=== PATIENT | male | born 1970 | race Caucasian/White ===

== ENCOUNTER 2024-05-23 20:55 | Emergency (ER) | payer MEDICAID ==
[~2024-05-23] VITALS: Ht 182.9 cm; Wt 90.9 kg
[2024-05-23 20:59] VITALS: BP 174/81; PULSE 88; O2SAT 96
[2024-05-23 22:02] LABS: BASOPHILS % (AUTO) 1.4 % (0-1); EOSINOPHILS # (AUTO) 0.1 X10'3 (0-0.9); EOSINOPHILS % (AUTO) 3.7 % (0-6); HEMATOCRIT 38.5 % (42.0-52.0); HEMOGLOBIN 13.4 g/dl (14.0-17.9); LYMPHOCYTES # (AUTO) 0.9 X10'3 (1.1-4.8); LYMPHOCYTES % (AUTO) 29.7 % (21-51); MEAN CORPUSCULAR HGB CONC 34.8 g/dL (33.0-36.5); MEAN CORPUSCULAR VOLUME 106.2 FL (78-98); MEAN PLATELET VOLUME 9.1 FL (7.4-10.4); MONOCYTES # (AUTO) 0.3 X10'3 (0-0.9); MONOCYTES % (AUTO) 8.6 % (2-12); NEUTROPHILS # (AUTO) 1.7 X10'3 (1.8-7.7); NEUTROPHILS % (AUTO) 56.6 % (42-75); PLATELET COUNT 54 X10'3 (140-440); RED BLOOD COUNT 3.62 X10'6 (4.70-6.10); RED CELL DISTRIBUTION WIDTH 15.5 % (11.5-14.5)
[2024-05-23 22:05] LABS: INR 1.2 INR; PROTHROMBIN TIME 12.8 SECONDS (9.0-12.0)
[2024-05-23 22:11] LABS: ANION GAP 6 (8-16); BLOOD UREA NITROGEN 13 MG/DL (7-18); BUN/CREATININE RATIO 14.6 (10.0-20.0); CALCIUM 8.3 MG/DL (8.5-10.1); CHLORIDE 107 MMOL/L (99-107); CREATININE 0.89 MG/DL (0.60-1.10); POTASSIUM 4.1 MMOL/L (3.5-5.1); PRO BRAIN NATRIURETIC PEPTIDE 83 PG/ML (0-125); SODIUM 140 MMOL/L (135-145); TOTAL CARBON DIOXIDE 26.8 MMOL/L (24-32); eCRCL 105 ML/MIN; eGFR 89 ML/MIN
[2024-05-23 22:14] LABS: D-DIMER 1.27 MG/L FEU (0-0.50); GLUCOSE 116 MG/DL (70-104)
[2024-05-23 22:29] VITALS: RESP 18
[2024-05-23 23:01] LABS: TOTAL CELLS COUNTED 100
[2024-05-23 23:06] LABS: PLATELET ESTIMATE DECREASED
[2024-05-23 23:07] LABS: LARGE PLATELETS FEW
[2024-05-23] MEDS: ondansetron/PF 4mg/2ml inj IV ONE (23:39)
[2024-05-23] MEDS: morphine 4 MG/ML inj SYRINge IV ONE (23:40)
[2024-05-23] MEDS ORDERED: iohexol 350MG/ML 100ml bottle IV ONE (23:42)
[2024-05-24] MEDS ORDERED: apixaban 5mg tablet PO SCH (00:20)
[2024-05-24] MEDS: apixaban 5mg tablet PO ONE (01:09)
[2024-05-24] MEDS ORDERED: APIX5TAB3 PO (01:31)
[2024-05-24 02:38] VITALS: TEMP 98.7
[2024-05-24] MEDS: HYDROcodone/acetaminophen 10/325mg tab PO ONE (02:38)
== END 2024-05-24 02:41 | disposition home or self-care (01) ==
LOC: ER 20:57
DX: I82.412 Acute embolism and thrombosis of left femoral vein (principal); R06.02 Shortness of breath; Z88.8 Allergy status to other drugs, medicaments and biological substances; Z79.899 Other long term (current) drug therapy
CPT/HCPCS: 36415; 71045; 71275; 80048; 83880; 84484; 85007; 85025; 85379; 85610; 93005; 93970; 96374; 96375; 99285; J2270; J2405; Q9967

== ENCOUNTER 2024-06-12 10:55 | Inpatient (IN) | payer BC, MEDICAID ==
[~2024-06-12] VITALS: Ht 182.9 cm; Wt 81.8 kg
[~2024-06-12 10:55] MED LIST: APIX5TAB3 PO
[2024-06-12 11:39] LABS: EOSINOPHILS % (AUTO) 0.2 % (0-6); HEMOGLOBIN 14.7 g/dl (14.0-17.9); LYMPHOCYTES # (AUTO) 0.3 X10'3 (1.1-4.8); NEUTROPHILS # (AUTO) 5.3 X10'3 (1.8-7.7); RED BLOOD COUNT 4.02 X10'6 (4.70-6.10)
[2024-06-12] MEDS: ondansetron/PF 4mg/2ml inj IM ONE (11:40)
[2024-06-12 11:42] LABS: BASOPHILS % (AUTO) 0.2 % (0-1); HEMATOCRIT 42.8 % (42.0-52.0); LYMPHOCYTES % (AUTO) 5.5 % (21-51); MEAN CORPUSCULAR HEMOGLOBIN 36.5 PG (27.0-31.0); MEAN CORPUSCULAR HGB CONC 34.3 g/dL (33.0-36.5); MEAN CORPUSCULAR VOLUME 106.4 FL (78-98); MEAN PLATELET VOLUME 10.4 FL (7.4-10.4); MONOCYTES # (AUTO) 0.3 X10'3 (0-0.9); MONOCYTES % (AUTO) 5.3 % (2-12); NEUTROPHILS % (AUTO) 88.8 % (42-75); RED CELL DISTRIBUTION WIDTH 14.6 % (11.5-14.5)
[2024-06-12 11:45] LABS: PLATELET COUNT 30 X10'3 (140-440)
[2024-06-12 11:49] LABS: ALANINE AMINOTRANSFERASE 51 U/L (12-78); ALBUMIN 3.3 G/DL (3.4-5.0); ALKALINE PHOSPHATASE 103 IU/L (46-116); ANION GAP 11 (8-16); ASPARTATE AMINO TRANSFERASE 31 U/L (10-37); BILIRUBIN,TOTAL 4.8 MG/DL (0.1-1.0); BLOOD UREA NITROGEN 13 MG/DL (7-18); BUN/CREATININE RATIO 14.8 (10.0-20.0); CALCIUM 8.5 MG/DL (8.5-10.1); CHLORIDE 107 MMOL/L (99-107); CREATININE 0.88 MG/DL (0.60-1.10); POTASSIUM 3.8 MMOL/L (3.5-5.1); SODIUM 138 MMOL/L (135-145); TOTAL CARBON DIOXIDE 20.1 MMOL/L (24-32); eCRCL 107 ML/MIN; eGFR > 90 ML/MIN
[2024-06-12 11:55] LABS: PRO BRAIN NATRIURETIC PEPTIDE 785 PG/ML (0-125)
[2024-06-12 11:57] LABS: ALBUMIN/GLOBULIN RATIO 0.8 (1.1-1.5); GLUCOSE 153 MG/DL (70-104); TOTAL PROTEIN 7.3 G/DL (6.4-8.2)
[2024-06-12 12:20] LABS: PLATELET ESTIMATE DECREASED; TOTAL CELLS COUNTED 100
[2024-06-12 12:25] LABS: CLARITY,URINE CLEAR (Clear)
[2024-06-12 12:30] LABS: COLOR,URINE ORANGE (Yellow); UA COLLECTION TYPE NON-SPECIFIED
[2024-06-12 12:33] LABS: BACTERIA,URINE FEW /HPF (Neg); MUCUS STRANDS NONE SEEN /LPF (Neg); SQUAMOUS EPITHELIAL CELL,UR NONE SEEN /LPF (FEW)
[2024-06-12] MEDS: normal saline 1000ml 1,000 ML IV ONE ×2 (12:36→14:40)
[2024-06-12] MEDS: morphine 4 MG/ML inj SYRINge IV ONE ×2 (12:41→14:41)
[2024-06-12] MEDS: ondansetron/PF 4mg/2ml inj IV ONE ×2 (12:55→14:41)
[2024-06-12] MEDS ORDERED: iohexol 300mg/ml 100ml inj. ONE (14:27)
[2024-06-12] MEDS: piperacillin/tazo 3.375gm/50ml 50 ML IV ONE (14:41)
[2024-06-12] MEDS ORDERED: potassium Cl 20 mEq SR tablet PO PRN ×2 (18:50)
[2024-06-12] MEDS ORDERED: acetaminophen 325mg tablet PO PRN (18:50)
[2024-06-12] MEDS ORDERED: haloperidol 5mg tablet PO PRN (18:50)
[2024-06-12] MEDS ORDERED: magnesium hydroxide 30ml (MOM) UD suspension PO PRN (18:50)
[2024-06-12] MEDS ORDERED: potassium Cl 40MEQ/1/2NS 520ml 520 ML IV PRN (18:50)
[2024-06-12] MEDS ORDERED: magnesium sulf-water 4G/100mL 100 ML IV PRN (18:50)
[2024-06-12] MEDS ORDERED: cloNIDine 0.1 mg tablet PO PRN (18:50)
[2024-06-12] MEDS ORDERED: magnesium sulf-water 2g/50mL 50 ML IV PRN (18:50)
[2024-06-12] MEDS ORDERED: magnesium Cl slow-release 64mg tablet PO PRN (18:50)
[2024-06-12] MEDS ORDERED: dextrose 50%-water 50ml dispensing syringe IV PRN (18:50)
[2024-06-12] MEDS ORDERED: mag hydrox/Alum hydrox/simeth 30ml oral suspension PO PRN (18:50)
[2024-06-12] MEDS ORDERED: ondansetron/PF 4mg/2ml inj IV PRN (18:50)
[2024-06-12] MEDS ORDERED: haloperidol lactate 5mg/ml inj IM PRN (18:50)
[2024-06-12] MEDS: LORazepam 2 mg/ml vial IV ONE (19:00)
[2024-06-12] MEDS: normal saline 1000ml 1,000 ML IV SCH (19:38)
[2024-06-12 19:50] LABS: HEMOGLOBIN A1C 4.2 % (4.5-6.2)
[2024-06-12 20:00] VITALS: RESP 18; O2SAT 96
[2024-06-12] MEDS: K and/or MAG REPLACEMENT MC SCH (20:00)
[2024-06-12] MEDS: thiamine 100mg/ml 2ml inj. IV SCH (20:44)
[2024-06-12] MEDS: docusate sod 100mg capsule PO SCH (20:44)
[2024-06-12] MEDS ORDERED: ASPI-1264 PO (21:57)
[2024-06-12 22:00] VITALS: BP 114/60; PULSE 95; RESP 18; TEMP 98.3; O2SAT 96
[2024-06-12] MEDS: LORazepam 2 mg/ml vial IV PRN (22:05)
[2024-06-13] MEDS: acetaminophen 325mg tablet PO PRN (00:01)
[2024-06-13] MEDS ORDERED: ASPI-10 PO (02:51)
[2024-06-13 06:00] VITALS: BP 92/55; PULSE 93; RESP 22; TEMP 97.9; O2SAT 98
[2024-06-13 07:43] LABS: EOSINOPHILS # (AUTO) 0.1 X10'3 (0-0.9); HEMOGLOBIN 11.4 g/dl (14.0-17.9); MONOCYTES # (AUTO) 0.2 X10'3 (0-0.9); WHITE BLOOD COUNT 2.9 X10'3 (4.5-11.0)
[2024-06-13 07:45] LABS: BASOPHILS % (AUTO) 0.5 % (0-1); HEMATOCRIT 32.9 % (42.0-52.0); LYMPHOCYTES # (AUTO) 0.6 X10'3 (1.1-4.8); MEAN CORPUSCULAR HGB CONC 34.8 g/dL (33.0-36.5); MEAN CORPUSCULAR VOLUME 106.2 FL (78-98); MONOCYTES % (AUTO) 7.4 % (2-12); NEUTROPHILS % (AUTO) 69.1 % (42-75); RED CELL DISTRIBUTION WIDTH 15.2 % (11.5-14.5)
[2024-06-13 07:51] LABS: PLATELET COUNT 23 X10'3 (140-440)
[2024-06-13 07:57] LABS: ALANINE AMINOTRANSFERASE 35 U/L (12-78); ALBUMIN 2.3 G/DL (3.4-5.0); ALBUMIN/GLOBULIN RATIO 0.7 (1.1-1.5); ALKALINE PHOSPHATASE 78 IU/L (46-116); ANION GAP 7 (8-16); ASPARTATE AMINO TRANSFERASE 22 U/L (10-37); BILIRUBIN,TOTAL 3.2 MG/DL (0.1-1.0); BLOOD UREA NITROGEN 23 MG/DL (7-18); CALCIUM 7.7 MG/DL (8.5-10.1); CHLORIDE 108 MMOL/L (99-107); CHOL/HDL RATIO 2.9 (0.00-4.99); CHOLESTEROL 50 MG/DL (0-200); CREATININE 0.96 MG/DL (0.60-1.10); GLUCOSE 139 MG/DL (70-104); HDL CHOLESTEROL 17 MG/DL (35-60); LDL CHOLESTEROL 20 MG/DL (50-100); MAGNESIUM 1.5 MG/DL (1.5-2.4); POTASSIUM 3.8 MMOL/L (3.5-5.1); SODIUM 135 MMOL/L (135-145); TOTAL CARBON DIOXIDE 20.4 MMOL/L (24-32); TOTAL PROTEIN 5.5 G/DL (6.4-8.2); TRIGLYCERIDES 46 MG/DL (20-135); eCRCL 98 ML/MIN; eGFR 82 ML/MIN
[2024-06-13 08:00] VITALS: RESP 16; O2SAT 99
[2024-06-13 10:38] VITALS: BP 96/55; PULSE 83; RESP 20; TEMP 97.1; O2SAT 97
[2024-06-13] MEDS: folic acid 1mg/0.2ml inj IV SCH (11:11)
[2024-06-13] MEDS ORDERED: LIDOcaine 5% patch TP SCH (13:40)
[2024-06-13] MEDS: LIDOcaine 5% patch TP SCH (14:13)
[2024-06-13] MEDS: HYDROcodone/acetaminophen 10/325mg tab PO PRN (16:50)
[2024-06-13 18:00] VITALS: BP 136/61; PULSE 87; RESP 16; TEMP 98; O2SAT 98
[2024-06-13 20:00] VITALS: RESP 16; O2SAT 98
[2024-06-13 22:00] VITALS: BP 92/48; PULSE 94; RESP 17; TEMP 98; O2SAT 99
[2024-06-14 06:00] VITALS: BP 120/59; PULSE 83; RESP 22; TEMP 98; O2SAT 99
[2024-06-14 06:32] LABS: EOSINOPHILS # (AUTO) 0.1 X10'3 (0-0.9); LYMPHOCYTES # (AUTO) 0.5 X10'3 (1.1-4.8); MONOCYTES # (AUTO) 0.2 X10'3 (0-0.9); NEUTROPHILS # (AUTO) 1.3 X10'3 (1.8-7.7); NEUTROPHILS % (AUTO) 63.1 % (42-75); WHITE BLOOD COUNT 2.1 X10'3 (4.5-11.0)
[2024-06-14 06:34] LABS: BASOPHILS % (AUTO) 0.9 % (0-1); EOSINOPHILS % (AUTO) 3.8 % (0-6); HEMATOCRIT 32.5 % (42.0-52.0); HEMOGLOBIN 11.5 g/dl (14.0-17.9); LYMPHOCYTES % (AUTO) 23.9 % (21-51); MEAN CORPUSCULAR HEMOGLOBIN 37.5 PG (27.0-31.0); MEAN CORPUSCULAR HGB CONC 35.3 g/dL (33.0-36.5); MEAN CORPUSCULAR VOLUME 106.3 FL (78-98); MEAN PLATELET VOLUME 10.8 FL (7.4-10.4); MONOCYTES % (AUTO) 8.3 % (2-12); RED BLOOD COUNT 3.06 X10'6 (4.70-6.10); RED CELL DISTRIBUTION WIDTH 15.2 % (11.5-14.5)
[2024-06-14 06:39] LABS: PLATELET COUNT 25 X10'3 (140-440)
[2024-06-14 06:43] LABS: ALANINE AMINOTRANSFERASE 33 U/L (12-78); ALBUMIN 2.3 G/DL (3.4-5.0); ALBUMIN/GLOBULIN RATIO 0.7 (1.1-1.5); ALKALINE PHOSPHATASE 80 IU/L (46-116); ANION GAP 7 (8-16); ASPARTATE AMINO TRANSFERASE 25 U/L (10-37); BILIRUBIN,TOTAL 1.4 MG/DL (0.1-1.0); BLOOD UREA NITROGEN 20 MG/DL (7-18); BUN/CREATININE RATIO 22.7 (10.0-20.0); CALCIUM 8.1 MG/DL (8.5-10.1); CHLORIDE 109 MMOL/L (99-107); CREATININE 0.88 MG/DL (0.60-1.10); GLUCOSE 107 MG/DL (70-104); MAGNESIUM 1.9 MG/DL (1.5-2.4); POTASSIUM 4.3 MMOL/L (3.5-5.1); SODIUM 137 MMOL/L (135-145); TOTAL CARBON DIOXIDE 20.8 MMOL/L (24-32); TOTAL PROTEIN 5.7 G/DL (6.4-8.2); eCRCL 107 ML/MIN; eGFR > 90 ML/MIN
[2024-06-14 07:22] LABS: PLATELET ESTIMATE DECREASED; TOTAL CELLS COUNTED 100
[2024-06-14 09:57] LABS: APTT 28 SECONDS (22-32); D-DIMER 1.14 MG/L FEU (0-0.50); FIBRINOGEN 336 MG/DL (177-424); INR 1.1 INR; PROTHROMBIN TIME 11.8 SECONDS (9.0-12.0)
[2024-06-14 10:00] VITALS: BP 146/75; PULSE 83; RESP 16; TEMP 98.2; O2SAT 100
[2024-06-14 10:07] LABS: PLATELET COUNT 28 X10'3 (140-440)
[2024-06-14 11:06] VITALS: RESP 16
[2024-06-14] MEDS ORDERED: thiamine tablet PO (12:44)
[2024-06-14] MEDS ORDERED: FOLI1TAB27 PO (12:44)
[2024-06-14] MEDS ORDERED: LORazepam 2 mg/ml vial IV PRN (18:50)
[2024-06-14] MEDS ORDERED: LORazepam 1 MG tablet PO PRN (18:50)
[2024-06-16 07:24] LABS: HBSAG SCREEN Negative (Negative); HEP A AB, IGM Negative (Negative); HEP B CORE AB, IGM Negative (Negative)
[2024-06-16] MEDS ORDERED: LORazepam 1 MG tablet PO PRN (18:50)
[2024-06-16] MEDS ORDERED: LORazepam 2 mg/ml vial IV PRN (18:50)
[2024-06-17] MEDS ORDERED: thiamine 100mg tablet PO SCH (08:00)
[2024-06-17] MEDS ORDERED: folic acid 1mg tablet PO SCH (08:00)
== END 2024-06-14 13:22 | disposition home or self-care (01) | DRG 872 ==
LOC: ER 10:56 → ED HOLD 18:59 → ORTHO 4S 21:52
PROVIDERS: ADMIT Internal Medicine; ATTEND Internal Medicine
PROC: BW211ZZ Computerized Tomography (CT Scan) of Abdomen and Pelvis using Low Osmolar Contrast (ICD-10-PCS; principal; 2024-06-12)
DX: A41.9 Sepsis, unspecified organism (principal); F10.139 Alcohol abuse with withdrawal, unspecified; F17.210 Nicotine dependence, cigarettes, uncomplicated; Y90.9 Presence of alcohol in blood, level not specified; D69.59 Other secondary thrombocytopenia; M32.9 Systemic lupus erythematosus, unspecified; K70.30 Alcoholic cirrhosis of liver without ascites; M54.50 Low back pain, unspecified; I87.8 Other specified disorders of veins; Z86.711 Personal history of pulmonary embolism; Z86.718 Personal history of other venous thrombosis and embolism
CPT/HCPCS: 36415; 71045; 72148; 74177; 80053; 80061; 80074; 81001; 83036; 83605; 83735; 83880; 84484; 85007; 85025; 85379; 85384; 85610; 85730; 87081; 87088; 87811; 93005; 93971; 99285; G0378; J2060; J2270; J2405; J2543; J3411; J3490; J7030; Q9967

== ENCOUNTER 2024-06-23 17:13 | Emergency (ER) | payer BC, MEDICAID ==
[~2024-06-23] VITALS: Ht 182.9 cm; Wt 84.1 kg
[~2024-06-23 17:13] MED LIST changes: -APIX5TAB3 PO; +FOLI1TAB27 PO; +thiamine tablet PO
[2024-06-23] MEDS: LORazepam 2 mg/ml vial IM ONE (18:57)
[2024-06-23 19:15] LABS: URINE AMPHETAMINE SCREEN NEGATIVE (Neg); URINE BARBITUATE SCREEN NEGATIVE (Neg); URINE BENZODIAZEPINES SCREEN NEGATIVE (Neg); URINE CANNABINOID SCREEN POSITIVE (Neg); URINE COCAINE SCREEN NEGATIVE (Neg); URINE METHADONE SCREEN NEGATIVE (Neg); URINE OPIATE SCREEN NEGATIVE (Neg); URINE PHENCYCLIDINE SCREEN NEGATIVE (Neg)
[2024-06-23 19:20] LABS: EOSINOPHILS # (AUTO) 0.1 X10'3 (0-0.9); HEMOGLOBIN 12.4 g/dl (14.0-17.9); LYMPHOCYTES # (AUTO) 0.6 X10'3 (1.1-4.8); NEUTROPHILS # (AUTO) 2.6 X10'3 (1.8-7.7); WHITE BLOOD COUNT 3.5 X10'3 (4.5-11.0)
[2024-06-23 19:22] LABS: BASOPHILS % (AUTO) 0.9 % (0-1); EOSINOPHILS % (AUTO) 1.8 % (0-6); HEMATOCRIT 35.8 % (42.0-52.0); LYMPHOCYTES % (AUTO) 17.6 % (21-51); MEAN CORPUSCULAR HGB CONC 34.7 g/dL (33.0-36.5); MEAN CORPUSCULAR VOLUME 106.7 FL (78-98); MEAN PLATELET VOLUME 9.8 FL (7.4-10.4); MONOCYTES # (AUTO) 0.1 X10'3 (0-0.9); MONOCYTES % (AUTO) 4.1 % (2-12); NEUTROPHILS % (AUTO) 75.6 % (42-75); RED BLOOD COUNT 3.35 X10'6 (4.70-6.10); RED CELL DISTRIBUTION WIDTH 14.2 % (11.5-14.5)
[2024-06-23 19:25] LABS: ALBUMIN 2.8 G/DL (3.4-5.0); ANION GAP 7 (8-16); BLOOD UREA NITROGEN 14 MG/DL (7-18); BUN/CREATININE RATIO 14.7 (10.0-20.0); CALCIUM 8.3 MG/DL (8.5-10.1); CHLORIDE 108 MMOL/L (99-107); CREATININE 0.95 MG/DL (0.60-1.10); ETHANOL < 10 MG/DL (<10); GLUCOSE 138 MG/DL (70-104); POTASSIUM 4.3 MMOL/L (3.5-5.1); SODIUM 140 MMOL/L (135-145); TOTAL CARBON DIOXIDE 24.8 MMOL/L (24-32); eCRCL 99 ML/MIN; eGFR 83 ML/MIN
[2024-06-23 19:30] LABS: PLATELET COUNT 38 X10'3 (140-440)
[2024-06-23] MEDS ORDERED: FOLI1TAB27 PO (19:30)
[2024-06-23] MEDS ORDERED: THIA100T70 PO (19:32)
[2024-06-23] MEDS ORDERED: olanzapine 10mg tablet PO ONE (20:50)
[2024-06-23] MEDS: OLANZapine 5mg rapidly disint. tablet PO ONE (20:58)
[2024-06-23 20:59] LABS: BILIRUBIN,URINE MODERATE (Neg); CLARITY,URINE CLOUDY (Clear); COLOR,URINE AMBER (Yellow); GLUCOSE, URINE NEGATIVE (Neg); KETONES,URINE NEGATIVE (Neg); LEUKOCYTE ESTERASE ,URINE NEGATIVE (Neg); OCCULT BLOOD,URINE MODERATE (Neg); PROTEIN,URINE NEGATIVE (Neg)
[2024-06-23 21:05] LABS: NITRITES, URINE NEGATIVE (Neg); UA COLLECTION TYPE CLN CATCH MIDSTREAM
[2024-06-23 21:09] LABS: MUCUS STRANDS FEW /LPF (Neg); SQUAMOUS EPITHELIAL CELL,UR MODERATE /LPF (FEW)
[2024-06-23 21:10] LABS: ALANINE AMINOTRANSFERASE 39 U/L (12-78); ALBUMIN/GLOBULIN RATIO 0.7 (1.1-1.5); ALKALINE PHOSPHATASE 83 IU/L (46-116); ASPARTATE AMINO TRANSFERASE 35 U/L (10-37); THYROID STIMULATING HORMONE 0.49 ulU/ml (0.34-4.50); TOTAL PROTEIN 6.8 G/DL (6.4-8.2)
[2024-06-23 21:10] LABS: BACTERIA,URINE FEW /HPF (Neg); RBC,URINE 20-50 /HPF (0-2)
[2024-06-23 21:11] LABS: CAL OXALATE CRYSTALS FEW /HPF (NEGATIVE)
[2024-06-24] MEDS: folic acid 1mg tablet PO SCH (08:55)
[2024-06-24] MEDS: thiamine 100mg tablet PO SCH (08:55)
[2024-06-24] MEDS: LORazepam 1 MG tablet PO ONE (11:28)
[2024-06-24 18:31] VITALS: BP 122/62; PULSE 81; TEMP 97.8; O2SAT 99
[2024-06-24 18:34] VITALS: RESP 16
[2024-06-24] MEDS: hydrOXYzine 25 MG tablet PO ONE (18:49)
== END 2024-06-24 19:21 ==
LOC: ER 17:13
DX: R45.851 Suicidal ideations (principal); F41.9 Anxiety disorder, unspecified; F10.90 Alcohol use, unspecified, uncomplicated; Z20.822 Contact with and (suspected) exposure to COVID-19; Z88.8 Allergy status to other drugs, medicaments and biological substances; Z79.899 Other long term (current) drug therapy; Z86.718 Personal history of other venous thrombosis and embolism; Z86.711 Personal history of pulmonary embolism
CPT/HCPCS: 36415; 80053; 80305; 80320; 81001; 84443; 85025; 87811; 96372; 99285; J2060; Q0177

== ENCOUNTER 2024-07-03 00:46 | Emergency (ER) | payer BC, MEDICAID ==
[~2024-07-03] VITALS: Ht 177.8 cm; Wt 84.1 kg
[~2024-07-03 00:46] MED LIST changes: +ASPI-1264 PO; +THIA100T70 PO; -thiamine tablet PO
[2024-07-03 01:52] LABS: BILIRUBIN,URINE NEGATIVE (Neg); CLARITY,URINE CLEAR (Clear); GLUCOSE, URINE NEGATIVE (Neg); KETONES,URINE NEGATIVE (Neg); LEUKOCYTE ESTERASE ,URINE NEGATIVE (Neg); NITRITES, URINE NEGATIVE (Neg); OCCULT BLOOD,URINE TRACE-INTACT (Neg); PROTEIN,URINE NEGATIVE (Neg); UROBILINOGEN,URINE >=8.0 E.U/dL (0.2-1.0)
[2024-07-03 02:05] LABS: URINE AMPHETAMINE SCREEN NEGATIVE (Neg); URINE BARBITUATE SCREEN NEGATIVE (Neg); URINE BENZODIAZEPINES SCREEN NEGATIVE (Neg); URINE CANNABINOID SCREEN POSITIVE (Neg); URINE COCAINE SCREEN NEGATIVE (Neg); URINE METHADONE SCREEN NEGATIVE (Neg); URINE OPIATE SCREEN NEGATIVE (Neg); URINE PHENCYCLIDINE SCREEN NEGATIVE (Neg)
[2024-07-03 02:11] LABS: COLOR,URINE DARK YELLOW (Yellow); UA COLLECTION TYPE CLN CATCH MIDSTREAM
[2024-07-03 02:12] LABS: BACTERIA,URINE NONE SEEN /HPF (Neg); MUCUS STRANDS NONE SEEN /LPF (Neg); SQUAMOUS EPITHELIAL CELL,UR NONE SEEN /LPF (FEW); WBC,URINE 0-4 /HPF (0-4)
[2024-07-03 02:14] LABS: BASOPHILS % (AUTO) 0.9 % (0-1); EOSINOPHILS # (AUTO) 0.1 X10'3 (0-0.9); EOSINOPHILS % (AUTO) 2.9 % (0-6); HEMATOCRIT 40.1 % (42.0-52.0); HEMOGLOBIN 13.8 g/dl (14.0-17.9); LYMPHOCYTES # (AUTO) 0.8 X10'3 (1.1-4.8); MEAN CORPUSCULAR HEMOGLOBIN 36.4 PG (27.0-31.0); MEAN CORPUSCULAR HGB CONC 34.5 g/dL (33.0-36.5); MEAN CORPUSCULAR VOLUME 105.3 FL (78-98); MEAN PLATELET VOLUME 9.7 FL (7.4-10.4); MONOCYTES # (AUTO) 0.5 X10'3 (0-0.9); MONOCYTES % (AUTO) 12.5 % (2-12); NEUTROPHILS # (AUTO) 2.3 X10'3 (1.8-7.7); NEUTROPHILS % (AUTO) 62.7 % (42-75); RED CELL DISTRIBUTION WIDTH 14.2 % (11.5-14.5); WHITE BLOOD COUNT 3.6 X10'3 (4.5-11.0)
[2024-07-03 02:16] LABS: PLATELET COUNT 43 X10'3 (140-440)
[2024-07-03 02:27] LABS: ALANINE AMINOTRANSFERASE 55 U/L (12-78); ALBUMIN 3.3 G/DL (3.4-5.0); ALBUMIN/GLOBULIN RATIO 0.8 (1.1-1.5); ALKALINE PHOSPHATASE 99 IU/L (46-116); ANION GAP 5 (8-16); ASPARTATE AMINO TRANSFERASE 43 U/L (10-37); BILIRUBIN,TOTAL 1.6 MG/DL (0.1-1.0); BLOOD UREA NITROGEN 18 MG/DL (7-18); BUN/CREATININE RATIO 18.4 (10.0-20.0); CALCIUM 8.4 MG/DL (8.5-10.1); CHLORIDE 105 MMOL/L (99-107); CREATININE 0.98 MG/DL (0.60-1.10); LIPASE 25 U/L (16-77); POTASSIUM 3.8 MMOL/L (3.5-5.1); SODIUM 136 MMOL/L (135-145); TOTAL PROTEIN 7.6 G/DL (6.4-8.2); eCRCL 90 ML/MIN; eGFR 80 ML/MIN
[2024-07-03 02:30] LABS: GLUCOSE 97 MG/DL (70-104)
[2024-07-03 04:16] LABS: ETHANOL < 10 MG/DL (<10); MAGNESIUM 2.1 MG/DL (1.5-2.4)
[2024-07-03 04:49] VITALS: PULSE 83
[2024-07-03] MEDS: HYDROcodone/acetaminophen 10/325mg tab PO ONE (04:57)
[2024-07-03 05:27] VITALS: BP 127/57; RESP 15; TEMP 98.5; O2SAT 98
== END 2024-07-03 05:54 | disposition home or self-care (01) ==
LOC: ER 00:47
DX: K70.30 Alcoholic cirrhosis of liver without ascites (principal); D61.811 Other drug-induced pancytopenia; R10.84 Generalized abdominal pain; F10.90 Alcohol use, unspecified, uncomplicated; Z88.8 Allergy status to other drugs, medicaments and biological substances; Z79.82 Long term (current) use of aspirin; Z79.899 Other long term (current) drug therapy; Z86.718 Personal history of other venous thrombosis and embolism; Z86.711 Personal history of pulmonary embolism
CPT/HCPCS: 36415; 74176; 80053; 80305; 80320; 81001; 83690; 83735; 85025; 99285; J7030

== ENCOUNTER 2025-05-03 09:39 | Inpatient (IN) | payer BC, MEDICAID ==
[~2025-05-03] VITALS: Ht 182.9 cm; Wt 109.0 kg
--- NOTE | 2025-05-03 10:29 | RADIOLOGY REPORT ---
DI CHEST,SINGLE VIEW, HISTORY: CP COMPARISON: DI CHEST,SINGLE VIEW on DOS: 06/12/24, DI CHEST,SINGLE VIEW on DOS: 05/23/24 DI CHEST,SINGLE VIEW on DOS: 06/12/24, DI CHEST,SINGLE VIEW on DOS: 05/23/24 TECHNICAL DATA: 1 view of the chest was obtained. FINDINGS: Lines and tubes: None Cardiomediastinal silhouette: normal Pulmonary vasculature: normal Lung expansion: normal Lung airspace: Perihilar airspace opacities. Lung interstitium: prominent Pleura: normal Pneumothorax: no Bones: Unremarkable Other: no IMPRESSION: Perihilar airspace opacities and interstitial prominence could be edema.
--- NOTE | 2025-05-03 10:44 | RADIOLOGY REPORT ---
EXAM: CT CT HEAD HISTORY: lethargy sleepiness COMPARISON: None TECHNIQUE: Axial images of the head were obtained and reformatted in coronal and sagittal planes. All CT scans at this medical facility are performed using dose modulation techniques as appropriate t o a performed exam including the following: Automated exposure control was utilized; adjustment of th e MA and/or KV according to patient size; and use of iterative reconstruction technique. CT Dose: CTDI volume is 50 mGy. Dose-length product is 959 mGy*cm FINDINGS: There is no evidence of acute intracranial hemorrhage, mass, mass effect midline shift. There is no h ydrocephalus or extra-axial fluid collection. Riddle-white matter differentiation is maintained. There is mucosal thickening in the left maxillary sinus. The remaining visualized paranasal sinuses a nd mastoid air cells are clear. The calvarium is intact. IMPRESSION: 1. No acute intracranial process. HS:Y
[2025-05-03] MEDS: normal saline 1000ml 1,000 ML IV SCH ×3 (10:45→20:55)
--- NOTE | 2025-05-03 10:45 | Physician Documentation ---
History of Present Illness ~ Chief Complaint: Hypotension Stated Complaint: LETHARGIC Time Seen by MD: 10:12 OK to notify your PCP?: Yes Primary Medical Doctor: NONE Source: RN/MD, EMS, RN notes reviewed, old records Exam Limitations: clinical condition (altered mental status) HPI 54 year old male brought to the ED via EMS from [facility] with concerns of altered mental status/ "lethargy" beginning today. He was reportedly found to be very somnolent and altered by staff there this morning. EMS was called and , patient's oxygen saturation was reportedly in the low 80s. Glucose was 199. Patient reportedly has a history of hepatic encephalopathy, cirrhosis, as well as narcotic use. Unable to obtain complete history of present illness due to patient's altered mental status. Medication Reconciliation Allergies: Coded Allergies: prednisone (Verified Allergy, Unknown, 06/23/24) Discontinued Medications Aspirin* (Aspirin*), 1 TAB PO DAILY Discontinued Reason: patient no longer taking Folic Acid* (Folic Acid*), 1 TAB PO DAILY, (Reported) Discontinued Reason: patient no longer taking Thiamine Mononitrate (Vitamin B-1), 100 MG PO DAILY, (Reported) Discontinued Reason: patient no longer taking Past Medical History Past Medical History: Pulmonary Embolism, *GI/HEPATOBILIARY*, Cirrohsis, Deep Vein Thrombosis Patient History: Patient reports no known family medical history. Alcohol Use: Alcoholic Drug Use: none Unable to obtain complete PMH: altered mental status Review of Systems Unable to obtain complete ROS: altered mental status Physical Exam Vital Signs: RN Vital Signs have been reviewed: Yes, Temperature: 97.6, Heart Rate: 62, Respiratory Rate: 10, BP: 87/48, Pulse Oximetry: 98, Weight: 109.090 Oxygen Flow Rate: 2.0 Pulse Oximetry Reflects: hypoxemia Physical Exam General: The patient is well developed, well nourished, mild distress. Chronically ill appearing. Skin: [place], warm and dry with no rashes. HEENT: Head was normocephalic and atraumatic. Eyes - Pupils constricted at 1mm bilaterally, reactive. Extraocular movements were intact. Conjunctivae were slightly icteric. Neck: Supple and nontender. There was no jugular venous distention, lymphadenopathy, thyromegaly or masses. Chest: Clear to auscultation bilaterally without wheezes, rales or rhonchi. No accessory muscle use. No dullness to percussion. Heart: Rate regular and rhythmic. S1, S2. No murmurs. Palpation of the chest wall was normal. No rubs or thrills. Abdomen: Distended abdomen. Soft, nontender. Positive bowel sounds. No guarding or rebound. Extremities: Pitting edema of bilateral lower extremities with chronic venous stasis changes. No cyanosis or clubbing. Pulses were equal and symmetric. Neurologic: Obtunded, moans to pain, opens eyes. Not answering questions. Moves all extremities. Psychologic: Unable to assess. Progress Progress Note 1254: Case discussed with Dr. Huang, oncology specialist, who believes patient is appropriate for PCU. 1257: Hospitalist paged. 1310: Case discussed with Dr. Rondon, hospitalist, who will evaluate patient for admission but is requesting formal consultation by oncology specialist. Results/Orders Reviewed/noted all lab results: Yes Results/Orders Orders - DELFINO RAY MD Chest,Single View (05/03/25 09:51) Monitor (05/03/25 09:51) Saline Lock (05/03/25 09:51) Oxygen (05/03/25 09:51) Electrocardiogram (05/03/25 09:51) Hs Troponin I W Calculations (05/03/25 12:51) Ct Head (05/03/25 10:32) Culture Blood (05/03/25 10:37) Abg (Arterial Blood Gas) (05/03/25 12:44) Page Hospitalist (05/03/25 12:57) Fill Out Med Reconciliation (05/03/25 12:57) Nasal Gastric Tube (05/03/25 ) Completed Orders - DELFINO RAY MD Chest,Single View (05/03/25 09:51) Cbc/Diff (05/03/25 09:51) BMP (05/03/25 09:51) PBNP (05/03/25 09:51) Electrocardiogram (05/03/25 09:51) Hs Troponin I W Calculations (05/03/25 09:51) Hs Troponin I W Calculations (05/03/25 11:51) Ammonia (05/03/25 10:10) Ct Head (05/03/25 10:32) Liver Panel (05/03/25 10:36) MG (05/03/25 10:36) Procalcitonin (05/03/25 10:37) Lacticsepsis (05/03/25 10:37) Normal Saline 1000ml (Sodium Chloride 10 (05/03/25 10:45) Naloxone 2mg/2ml Inj (Narcan 2mg/2ml Inj (05/03/25 10:56) Glucagon, Human Recombinant (Glucagen In (05/03/25 11:50) Man Diff (05/03/25 10:54) Lactulose Oral Solution (Cephulac Oral S (05/03/25 13:00) Vital Signs 05/03/25 05/03/25 05/03/25 05/03/25 09:49 10:40 11:15 11:18 Temp 97.6 97.6 Pulse 65 62 63 Resp 10 10 9 B/P (MAP) 88/47 87/48 (61) 87/47 (60) Pulse Ox 98 98 99 O2 Flow Rate 4.0 2.0 05/03/25 11:46 Pulse 64 Resp 9 B/P (MAP) 98/53 (68) Pulse Ox 99 O2 Flow Rate 3.0 Laboratory Tests Test 05/03/25 10:54 05/03/25 12:39 05/03/25 13:17 White Blood Count 1.7 L Red Blood Count 3.11 L Hemoglobin 11.3 L Hematocrit 31.9 L Mean Corpuscular Volume 102.6 H Mean Corpuscular Hemoglobin 36.2 H Mean Corpuscular Hemoglobin Concent 35.3 Red Cell Distribution Width 14.3 Platelet Count 21 *L Mean Platelet Volume 9.7 Neutrophils (%) (Auto) 62.6 Lymphocytes (%) (Auto) 25.4 Monocytes (%) (Auto) 8.0 Eosinophils (%) (Auto) 2.8 Basophils (%) (Auto) 1.2 H Neutrophils # (Auto) 1.1 L Lymphocytes # (Auto) 0.4 L Monocytes # (Auto) 0.1 Eosinophils # (Auto) 0.0 Basophils # (Auto) 0.0 CBC Comment Differential Total Cells Counted 100 Neutrophils % (Manual) 61.0 Lymphocytes % (Manual) 29.0 Monocytes % (Manual) 9.0 Eosinophils % (Manual) 1.0 Platelet Estimate Decreased Red Blood Cell Morphology Normal Basophilic Stippling Sodium Level 141 Potassium Level 4.1 Chloride Level 111 H Carbon Dioxide Level 24.0 Anion Gap 6 L Blood Urea Nitrogen 18 Creatinine 0.81 Estimated GFR/1.73 m2 > 90 BUN/Creatinine Ratio 22.2 H Glucose Level 159 H Lactic Acid Level 1.2 Calcium Level 7.8 L Magnesium Level 1.7 Total Bilirubin 1.5 H Direct Bilirubin 0.5 H Aspartate Amino Transf (AST/SGOT) 49 H Alanine Aminotransferase (ALT/SGPT) 49 Alkaline Phosphatase 118 H Ammonia 140 *H Troponin I High Sensitivity 8 9 Pro-B-Type Natriuretic Peptide 67 Total Protein 6.2 L Albumin 2.4 L Globulin 3.8 Albumin/Globulin Ratio 0.6 L Procalcitonin 0.06 Chemistry Comments Troponin I High Sens Percent Delta 12 Troponin I Hi Sens Absolute Change 1 Blood Gas Specimen Type Arterial Blood Gas Puncture Site Lr O2 Saturation 90.4 L Arterial Blood pH (Temp corrected) 7.372 Arterial Blood pCO2 (Temp correct) 35.3 Arterial Blood pO2 (Temp corrected) 62.9 L Arterial Blood PO2/FiO2 Ratio 3.00 Arterial Blood HCO3 20.0 L Arterial Blood Base Excess -4.5 L Arterial Blood Oxyhemoglobin 89.3 L Arterial Blood Carboxyhemoglobin 0.9 Arterial Blood Methemoglobin 0.3 Arterial Blood Deoxyhemoglobin 9.5 H Gunnar Test Positive Blood Gas Hemoglobin 12.7 L Blood Gas Temperature 37.0 FiO2 21.0 Microbiology Date/Time Source Procedure Growth Status 05/03/25 12:39 Blood Hand Left Blood Culture - Preliminary NEGATIVE (LESS THAN 24 HOURS) Resulted Re-Evaluation Re-Evaluation : Re-Evaluation: Improved Progress Patient was seen and examined. Patient is given reassurance. Patient however somewhat obtunded living a bit ill. Patient has a slightly distended abdomen with a report of having ascites removed over a month ago. Patient's WBC shows anemia with a hemoglobin hematocrit of 11 and 39 MCV 102 low platelets he was 21 and WBC of 1.7. Chemistry shows pneumonia of 140. Otherwise chemistries are reassuring and within normal limits. Lactic acid is normal at 1.2 procalcitonin negative at 0.06 suggesting no signs of infection. BUN creatinine are also within normal limits including a normal without cm. Bilirubin slightly elevated at 1.5. Patient's albumin has a bit low at 2.4. Patient was somewhat obtunded he was concerned regarding his airway naloxone 0.5 mg was given. Patient's initial pupils were pinpoint he now woke up a bit but still relatively somnolent but showed improvement. Patient was then presented to the hospitalist service who recommended NG tube lactulose but did not feel that the patient would qualify for ICU evaluation. I then spoke to the hospitalist regarding the management of the patient. ABG then showed a pH of 7.372 with a pCO2 of 35 PO2 62 bicarb 20 base excess -4.5. Relatively speaking just mild metabolic abnormalities. That point I contacted the hospitalist once again regarding admission to the patient. Patient seemed to have woken up a bit and was able to take lactulose orally and did not require an NG-tube. Patient also received a L bolus x2. There was initial concern because the patient has a blood pressure of 88/47. But later improved to 120 over 67. When I discussed the case with the ICU attending he mentioned that is cirrhotic often do have low blood pressure and was happy with blood pressure of 98/53 and stated that would be normal for this patient in the patient does not require ICU admission. Continuous logistician interpretation shows normal sinus rhythm heart rate 60s, no ectopy, normal, my interpretation. Pulse oximetry monitor interpretation shows low oxygenation at 98% on 4 L, abnormal, my interpretation. EKG/XRAY/CT/US/VASC/MRI EKG : Additional Comment Test Date: 2025-05-03 Test Time: 09:50:47 Pat Name: LLUVIA FONTANEZ Department: [facility] Patient ID: [facility]-[id number] Room: ED 5 Gender: M Sessions Clerk: GRANT : 1970 Requested By: DELFINO RAY Order Number: [id number] Reading MD: Dr. Delfino Ray Measurements Intervals [place] Rate: 65 P: 57 AL: 172 QRS: 41 QRSD: 89 T: 36 QT: 455 QTc: 474 Interpretive Statements Sinus rhythm Electronically Signed On 05-03-2025 14:56:[address] Delfino Ray Reviewed by myself, Dr. Ray. Chest X-Ray : Additional Comments DI CHEST,SINGLE VIEW, HISTORY: CP COMPARISON: DI CHEST,SINGLE VIEW on DOS: 06/12/24, DI CHEST,SINGLE VIEW on DOS: 05/23/24 DI CHEST,SINGLE VIEW on DOS: 06/12/24, DI CHEST,SINGLE VIEW on DOS: 05/23/24 TECHNICAL DATA: 1 view of the chest was obtained. FINDINGS: Lines and tubes: None Cardiomediastinal silhouette: normal Pulmonary vasculature: normal Lung expansion: normal Lung airspace: Perihilar airspace opacities. Lung interstitium: prominent Pleura: normal Pneumothorax: no Bones: Unremarkable Other: no IMPRESSION: Perihilar airspace opacities and interstitial prominence could be edema. Reviewed by myself (Dr. Ray) CT : Interpreted By: radiologist CT: head With Contrast?: No Impression EXAM: CT CT HEAD HISTORY: lethargy sleepiness COMPARISON: None TECHNIQUE: Axial images of the head were obtained and reformatted in coronal and sagittal planes. All CT scans at this medical facility are performed using dose modulation techniques as appropriate to a performed exam including the following: Automated exposure control was utilized; adjustment of the MA and/or KV according to patient size; and use of iterative reconstruction technique. CT Dose: CTDI volume is 50 mGy. Dose-length product is 959 mGy*cm FINDINGS: There is no evidence of acute intracranial hemorrhage, mass, mass effect midline shift. There is no hydrocephalus or extra-axial fluid collection. Riddle-white matter differentiation is maintained. There is mucosal thickening in the left maxillary sinus. The remaining visualized paranasal sinuses and mastoid air cells are clear. The calvarium is intact. IMPRESSION: 1. No acute intracranial process. HS:Y Reviewed by myself (Dr. Ray) Medical Decision Making Additional info obtained from: old records Differential Dx:Considerations: Include: dehydration, DKA, encephalopathy, hypercalcemia, hypoglycemia, hypernatremia, hyponatremia, hypoxia, CVA, mass lesion, subarachnoid hemorrhage, drug overdose, encephalopathy, ETOH intoxication, medication toxicity, infection - meningitis, infection - sepsis, infection - UTI, renal failure, respiratory failure, hyperthermia, hypothermia, other Departure Time of Disposition: 12:57 Disposition: ADMITTED INPATIENT Admitted to Inpatient Unit: yes, to hospitalist Admission Level of Care: PCU with Tele Impression: Primary Impression: Metabolic encephalopathy Additional Impressions: Cirrhosis Qualified Codes: K74.60 - Unspecified cirrhosis of liver Hyperammonemia Thrombocytopenia Condition: Critical Education Educated: Patient Educated regarding: diagnosis, treatment Critical Care Note Total Time (mins): 30 Critical Care Note Critical Care Time: 30 minutes Treatments/Evaluations: Close monitoring and treatment of unstable vital signs, cardiorespiratory, and neurologic status, while maintaining tight balance of fluid, respiratory, and cardiac interventions. This time includes discussing the case with the patient and the patient's family. This time does not include all procedures stated elsewhere in this record. This time also includes reviewing old records, labs and radiological studies. This time includes examining and re- examining the patient. Additionally, this time also includes arranging care with admitting and consulting physicians. Signature Scribe Signature: Scribed for Delfino Ray MD by Kasia Mccord . 05/03/25 10:57 Attestation: The note accurately reflects work and decisions made by me.Delfino Ray MD 05/03/25 23:46 DELFINO RAY MD May 03, 2025 10:45 KASIA ROMO May 03, 2025 11:02
--- NOTE | 2025-05-03 11:08 | ELECTROCARDIOGRAPH REPORT ---
[facility] Test Date: 2025-05-03 Test Time: 09:50:47 Pat Name: LLUVIA FONTANEZ Department: [facility] Patient ID: [facility]-[id number] Room: ED 5 Gender: M Hand Shaker: GRANT : 1970 Requested By: ISHAN RAY Order Number: [id number] Reading MD: Dr. Ishan Ray Measurements Intervals [place] Rate: 65 P: 57 [place]: 172 QRS: 41 QRSD: 89 T: 36 QT: 455 QTc: 474 Interpretive Statements Sinus rhythm Electronically Signed On 05-03-2025 14:56:[address] Ishan Ray Please click the below link to view image of tracing.
[2025-05-03] MEDS: naloxone 2mg/2ml inj IV STA (11:11)
[2025-05-03 11:16] LABS: LYMPHOCYTES # (AUTO) 0.4 X10'3 (1.1-4.8); LYMPHOCYTES % (AUTO) 25.4 % (21-51); MONOCYTES # (AUTO) 0.1 X10'3 (0-0.9); NEUTROPHILS # (AUTO) 1.1 X10'3 (1.8-7.7); WHITE BLOOD COUNT 1.7 X10'3 (4.5-11.0)
[2025-05-03 11:19] LABS: BASOPHILS % (AUTO) 1.2 % (0-1); EOSINOPHILS % (AUTO) 2.8 % (0-6); HEMATOCRIT 31.9 % (42.0-52.0); HEMOGLOBIN 11.3 g/dl (14.0-17.9); MEAN CORPUSCULAR HEMOGLOBIN 36.2 PG (27.0-31.0); MEAN CORPUSCULAR HGB CONC 35.3 g/dL (33.0-36.5); MEAN CORPUSCULAR VOLUME 102.6 FL (78-98); MEAN PLATELET VOLUME 9.7 FL (7.4-10.4); NEUTROPHILS % (AUTO) 62.6 % (42-75); RED BLOOD COUNT 3.11 X10'6 (4.70-6.10); RED CELL DISTRIBUTION WIDTH 14.3 % (11.5-14.5)
[2025-05-03 11:53] LABS: ALANINE AMINOTRANSFERASE 49 U/L (12-78); ALBUMIN 2.4 G/DL (3.4-5.0); ALBUMIN/GLOBULIN RATIO 0.6 (1.1-1.5); ALKALINE PHOSPHATASE 118 IU/L (46-116); ANION GAP 6 (8-16); ASPARTATE AMINO TRANSFERASE 49 U/L (10-37); BILIRUBIN,DIRECT 0.5 MG/DL (0-0.3); BILIRUBIN,TOTAL 1.5 MG/DL (0.1-1.0); BLOOD UREA NITROGEN 18 MG/DL (7-18); BUN/CREATININE RATIO 22.2 (10.0-20.0); CALCIUM 7.8 MG/DL (8.5-10.1); CHLORIDE 111 MMOL/L (99-107); CREATININE 0.81 MG/DL (0.60-1.10); GLUCOSE 159 MG/DL (70-104); MAGNESIUM 1.7 MG/DL (1.5-2.4); POTASSIUM 4.1 MMOL/L (3.5-5.1); PRO BRAIN NATRIURETIC PEPTIDE 67 PG/ML (0-125); SODIUM 141 MMOL/L (135-145); TOTAL PROTEIN 6.2 G/DL (6.4-8.2); eCRCL 114 ML/MIN; eGFR > 90 ML/MIN
[2025-05-03 11:55] LABS: PLATELET COUNT 21 X10'3 (140-440)
[2025-05-03 12:22] LABS: PLATELET ESTIMATE DECREASED; TOTAL CELLS COUNTED 100
[2025-05-03] MEDS: glucagon, human recombinant 1mg kit IV ONE (12:36)
[2025-05-03] MEDS: lactulose 20gm/30ml cup PO ONE (13:07)
[2025-05-03 13:22] LABS: ABG BASE EXCESS -4.5 mmol/L (-2.0-3.0); ABG OXYGEN SATURATION 90.4 % (94.0-98.0); ABG PCO2 (T) 35.3 mmHg (35.0-48.0); ABG PH (T) 7.372 (7.350-7.450); ABG PO2 (T) 62.9 mmHg (83.0-108.0); ALLEN'S TEST POSITIVE; FCOHb 0.9 % (0.5-1.5); FHHb 9.5 % (0.0-5.0); FMetHb 0.3 % (0.0-1.5); FO2Hb 89.3 % (94.0-98.0); TOTAL HEMOGLOBIN 12.7 G/dl (13.5-17.5)
[2025-05-03] MEDS ORDERED: ondansetron/PF 4mg/2ml inj IV PRN (13:45)
[2025-05-03] MEDS ORDERED: mag hydrox/Alum hydrox/simeth 30ml oral suspension PO PRN (13:45)
[2025-05-03] MEDS ORDERED: acetaminophen 325mg tablet PO PRN (13:45)
[2025-05-03] MEDS ORDERED: potassium Cl 40MEQ/1/2NS 520ml 520 ML IV PRN (13:45)
[2025-05-03] MEDS ORDERED: potassium Cl 20 mEq SR tablet PO PRN ×2 (13:45)
[2025-05-03] MEDS ORDERED: magnesium hydroxide 30ml (MOM) UD suspension PO PRN (13:45)
[2025-05-03] MEDS ORDERED: magnesium sulf-water 4G/100mL 100 ML IV PRN (13:45)
[2025-05-03] MEDS ORDERED: magnesium Cl slow-release 64mg tablet PO PRN (13:45)
[2025-05-03] MEDS ORDERED: magnesium sulf-water 2g/50mL 50 ML IV PRN (13:45)
--- NOTE | 2025-05-03 13:45 | HISTORY AND PHYSICAL ---
History & Physical Providers to CC ~ History of Present Illness Reason for Admit\Complaint: ALtered mental status History of Present Illness 54 year old male with history of cirrhosis of the liver presented to the ER for evaluation of altered mental status. Patient has an ammonia level of 140 and is being admitted for hepatic encephalopathy. I am unable to obtain any information when the patient however review of EMR was done. Patient has a history of chronic alcoholism and was last admitted to this facility on 2023. He also has history of lupus syndrome and DVTs and PEs and has had an IVC filter. Patient is being admitted for further treatment of hepatic encephalopathy. Allergies: Coded Allergies: prednisone (Verified Allergy, Unknown, 06/23/24) Home Medications Home Medications Active Aspirin* (Aspirin) 325 Mg Tablet 1 Tab PO DAILY 30 Days Reported Vitamin B-1 (Thiamine Mononitrate) 100 Mg Tablet 100 Mg PO DAILY Folic Acid* (Folic Acid) Y Tab 1 Tab PO DAILY Past Medical History Past Medical History Cirrhosis DVT and PE Lupus syndrome Past Surgical History Surgical History Comment Unobtainable Family History Family History: Family history was reviewed; no changes noted. Past Social History Social History Comment Unobtainable Health Maintenance Health Maintenance Unobtainable ROS ROS Unobtainable Exam Vitals: Vital Signs Date Time Temp Pulse Resp B/P (MAP) Pulse Ox O2 Delivery O2 Flow Rate FiO2 05/03/25 11:46 64 9 98/53 (68) 99 3.0 05/03/25 11:18 97.6 General: Nearly obtunded male in no acute distress HEENT: Normocephalic, atraumatic, exam is limited Neck: No JVD, trachea midline Chest: Clear to auscultation, no wheezes crackles rhonchi Cardiovascular: Regular rate rhythm, no murmur or gallop rub Abdomen: Soft, no organomegaly, distended Extremities: No cyanosis clubbing, edema noted Central Nervous System: Unable to assess. Patient is a nearly obtunded Musculoskeletal: No joint swelling or deformities are noted Skin: No rash or ulcers Diagnostic Data Last Recorded Lab Results: 05/03/25 1054 05/03/25 1054 Additional Plan 54 years old male with a history of alcoholism, lupus, PE, DVT, presented to the ER from [facility] for evaluation of altered mental status. Patient was reportedly found to be very somnolent and altered with the staff. 1. Hepatic encephalopathy: Treat with lactulose [place]. Continue monitor 2. History of DVT/PE: Patient has a an IVC filter. 3. Pancytopenia: Patient is a history of lupus syndrome. Continue monitor blood counts 4. Code status: Patient is unable to participate in this discussion and be kept as a full code 5. GI prophylaxis: Protonix 6. DVT prophylaxis: SCDs. Due to his cirrhosis of liver, patient may have an elevated INR. We will check PT INR. Date of Service: May 03, 2025 Billing Provider: RAI DARLING MD Common Visit Codes: [id number] INP/OBS CARE (HIGH) RAI DARLING MD May 03, 2025 13:45
[2025-05-03] MEDS ORDERED: lactulose 20gm/30ml cup RC ONE (13:55)
[2025-05-03] MEDS: Lactulose Enema **for rectal use only RC ONE (14:32)
[2025-05-03] MEDS: albumin (human) 25% 100 ML IV solution IV ONE (14:48)
[2025-05-03 16:00] VITALS: BP 91/43; PULSE 81; RESP 13; TEMP 97.7; O2SAT 97
[2025-05-03 18:00] VITALS: BP 147/68; PULSE 102; RESP 19; TEMP 98.6; O2SAT 96
[2025-05-03 20:00] VITALS: RESP 18; O2SAT 98
[2025-05-03] MEDS: docusate sod 100mg capsule PO SCH (20:00)
[2025-05-03] MEDS: K and/or MAG REPLACEMENT MC SCH (20:00)
[2025-05-03] MEDS: traMADol 50MG tablet PO PRN (21:43)
[2025-05-03 22:00] VITALS: BP 139/70; PULSE 98; RESP 18; TEMP 97.5; O2SAT 97
--- NOTE | 2025-05-03 23:15 | Visit Coding Note ---
Date of Service: May 03, 2025 Billing Provider: RAI DARLING MD Common Visit Codes: [id number] INP/OBS CARE (HIGH) RAI DARLING MD May 03, 2025 23:15
[2025-05-04 02:00] VITALS: BP 136/54; PULSE 88; RESP 12; TEMP 98.1; O2SAT 94
[2025-05-04 05:52] LABS: BASOPHILS % (AUTO) 0.8 % (0-1); EOSINOPHILS % (AUTO) 2.5 % (0-6); HEMATOCRIT 31.1 % (42.0-52.0); LYMPHOCYTES # (AUTO) 0.4 X10'3 (1.1-4.8); LYMPHOCYTES % (AUTO) 23.2 % (21-51); MEAN CORPUSCULAR HEMOGLOBIN 36.1 PG (27.0-31.0); MEAN CORPUSCULAR HGB CONC 35.3 g/dL (33.0-36.5); MEAN CORPUSCULAR VOLUME 102.2 FL (78-98); MEAN PLATELET VOLUME 8.8 FL (7.4-10.4); MONOCYTES # (AUTO) 0.1 X10'3 (0-0.9); MONOCYTES % (AUTO) 7.9 % (2-12); NEUTROPHILS % (AUTO) 65.6 % (42-75); RED BLOOD COUNT 3.04 X10'6 (4.70-6.10); RED CELL DISTRIBUTION WIDTH 14.7 % (11.5-14.5); WHITE BLOOD COUNT 1.5 X10'3 (4.5-11.0)
[2025-05-04 05:56] LABS: ALBUMIN 2.6 G/DL (3.4-5.0); ANION GAP 7 (8-16); BLOOD UREA NITROGEN 14 MG/DL (7-18); BUN/CREATININE RATIO 17.1 (10.0-20.0); CHLORIDE 111 MMOL/L (99-107); CREATININE 0.82 MG/DL (0.60-1.10); MAGNESIUM 1.6 MG/DL (1.5-2.4); POTASSIUM 4.1 MMOL/L (3.5-5.1); SODIUM 141 MMOL/L (135-145); TOTAL CARBON DIOXIDE 23.1 MMOL/L (24-32); eCRCL 113 ML/MIN; eGFR > 90 ML/MIN
[2025-05-04 06:14] LABS: CALCIUM 7.7 MG/DL (8.5-10.1); GLUCOSE 139 MG/DL (70-104)
[2025-05-04 07:00] VITALS: BP 118/66; PULSE 84; RESP 10; TEMP 98.2; O2SAT 95
--- NOTE | 2025-05-04 08:11 | PROGRESS NOTE ---
Daily Progress Note Providers to CC ~ Antibiotic Timeout Antibiotic Ordered?: No Objective Vital Signs Date Time Temp Pulse Resp B/P (MAP) Pulse Ox O2 Delivery O2 Flow Rate FiO2 05/04/25 07:00 98.2 84 10 118/66 (83) 95 Room Air 05/03/25 16:00 2.0 Result Diagram: 05/04/2552505/04/25525 Gen. HEENT: Normocephalic, atraumatic, NECK: Supple, no JVD, trachea midline. CHEST: Clear to auscultation, no wheezes crackles or rhonchi. HEART: Regular rate rhythm, no murmur gallop or rub. ABDOMEN: Soft, nontender, no organomegaly. EXTREMITIES: No cyanosis clubbing or edema. NEURO EXAM: Grossly nonfocal. MUSCULOSKELETAL : No joint swelling or deformities. SKIN: No rash or ulcers noted. Other Results Medications reviewed RAI DARLING MD May 04, 2025 08:11
[2025-05-04 08:49] LABS: PLATELET ESTIMATE DECREASED; TOTAL CELLS COUNTED 100
[2025-05-04] MEDS: lactulose 20gm/30ml cup PO SCH (09:01)
[2025-05-04 11:00] VITALS: BP 128/59; PULSE 88; RESP 15; TEMP 98.2; O2SAT 97
[2025-05-04] MEDS ORDERED: LACT10PA5 PO (12:22)
[2025-05-04] MEDS ORDERED: PALI9TAB4 PO (12:22)
[2025-05-04] MEDS ORDERED: AMIT10TA6 PO (12:22)
[2025-05-04] MEDS ORDERED: SPIR50TA5 PO (12:22)
[2025-05-04] MEDS ORDERED: GABA-1555 PO (12:22)
[2025-05-04] MEDS ORDERED: LACT10SO78 PO (12:22)
[2025-05-04] MEDS ORDERED: BACL5TAB PO (12:22)
[2025-05-04] MEDS ORDERED: FURO40TA4 PO (12:22)
[2025-05-04] MEDS ORDERED: MIRT-87 PO (12:22)
[2025-05-04] MEDS ORDERED: PRAZ2CAP2 PO (12:22)
[2025-05-04] MEDS ORDERED: RIFA550T PO (12:34)
--- NOTE | 2025-05-04 16:58 | DISCHARGE SUMMARY ---
Discharge Summary Providers to CC ~ Discharge Summary Admission Diagnosis: Hepatic encphalopathy Hospital Course DATE OF ADMISSION: DATE OF DISCHARGE: Condition on DC: Stable RAI DARLING MD May 04, 2025 16:58
[2025-05-06 12:04] LABS: PLATELET COUNT 18 X10'3 (140-440)
== END 2025-05-04 14:45 | disposition home or self-care (01) ==
LOC: ER 09:40 → ED HOLD 13:50 → PCU 3S 15:55
PROVIDERS: ADMIT Internal Medicine; ATTEND Internal Medicine
DX: K76.82 Hepatic encephalopathy (principal); G93.41 Metabolic encephalopathy; D61.818 Other pancytopenia; D69.6 Thrombocytopenia, unspecified; K74.60 Unspecified cirrhosis of liver; F10.20 Alcohol dependence, uncomplicated; Z86.718 Personal history of other venous thrombosis and embolism; Z86.711 Personal history of pulmonary embolism; Z88.8 Allergy status to other drugs, medicaments and biological substances
CPT/HCPCS: 36415; 36600; 70450; 71045; 80048; 80076; 82140; 82803; 83605; 83735; 83880; 84145; 84484; 85007; 85018; 85025; 87040; 87081; 93005; 96374; 96375; 99291; A4615; G0378; J1610; J2310; J7030; P9047